=== PATIENT | female | born 1950 | race Caucasian/White ===

== ENCOUNTER 2016-11-20 06:25 | Day surgery (SDC) | payer BC ==
--- NOTE | ~2016-11-20 | OP ---
Record Of Operation [facility] [address] [place]. 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 OPERATION PERFORMED: Right internal jugular Port-A-Cath placement under ultrasound and fluoroscopic guidance. SURGEON: Guillermo Wetzel M.D. ANESTHESIA: General. ESTIMATED BLOOD LOSS: Less than 10 mL. IV FLUIDS: Adequate. DESCRIPTION OF PROCEDURE: After appropriate sedation, the patient was prepped and draped in proper sterile fashion. Ultrasound probe was placed over the right neck. She had a patent and pliable right internal jugular vein. The right internal jugular vein was cannulated using a 14-gauge needle under ultrasound guidance. A guidewire was fed under fluoroscopic guidance just above the right heart. A transverse incision was made over the right chest wall. Subcutaneous tissues were incised down to the pectoralis fascia and a pocket was bluntly dissected. We placed an introducer sheath over the guidewire. A catheter was then fed through the introducer sheath with the tip being just above the right heart. The catheter was then fed through the sheath with the tip being just above the right heart. The catheter was then tunneled subcutaneously to the port pocket and secured to the port. The port was secured to the chest wall using 3-0 Vicryl suture. The port was flushed and aspirated, flushed and aspirated easily. The skin was closed using interrupted 3-0 Vicryl sutures. Steri-Strips and dressings were then placed. The patient was taken to the recovery room in satisfactory condition. DENNISE/DANYEL Guillermo Wetzel M.D. / [id number] CC: Guillermo Janeth Wetzel II, M.D.
[~2016-11-20 06:25] MED LIST: ACET500CAP PO; ARIXTRA7.5 SC; ASA5GR PO; BREO ELLIPTA 21 EACH INH; CALTRA600D PO; DSS PO; ELIQUIS 2.5 MG2.5 MG PO; FOLIC ACID PO; FOLIC PO; FORTAMET500 MG PO; GLUCPH PO; MTX2.5 PO; NORCO1 TAB PO; P5 PO; PCET PO; PLAQ200B PO; PRIN20 PO; SYMBICORT 160/41 INH INH; SYN1 PO; TOPAMAX25 PO; TREXALL5 MG PO; ULTRAM50 PO; ZESTRIL20 MG PO; ZIAC2 PO
[2016-11-20 07:35] LABS: HEMATOCRIT 32.9 % (36.0-48.0); HEMOGLOBIN 10.9 g/dL (12.0-16.0)
[2016-11-20 07:49] LABS: BUN (BLOOD UREA NITROGEN) 17 MG/DL (6-23); CALCIUM, SERUM 8.5 MG/DL (8.5-10.4); CHLORIDE, SERUM 111 MMOL/L (96-112); CO2 (CARBON DIOXIDE) 24 MMOL/L (24-34); CREATININE 0.92 MG/DL (0.55-1.02); GFR AFRICAN AMERICAN 76 ML/MIN (>=60); GFR NON AFRICAN AMERICAN 66 ML/MIN (>=60); GLUCOSE, SERUM 96 MG/DL (60-99); POTASSIUM, SERUM 3.4 MMOL/L (3.5-5.3); SODIUM, SERUM 145 MMOL/L (135-148)
[2017-03-14] MEDS ORDERED: TOPAMAX25 PO (18:13)
[2017-03-14] MEDS ORDERED: SYN1 PO (18:13)
[2017-03-14] MEDS ORDERED: ELIQUIS 2.5 MG2.5 MG PO (18:13)
[2017-03-14] MEDS ORDERED: PLAQ200B PO (18:14)
[2017-03-14] MEDS ORDERED: T PO (18:14)
[2017-03-14] MEDS ORDERED: LEVAQUIN750 MG PO (18:15)
[2017-03-14] MEDS ORDERED: CHEMO (18:15)
[2017-03-14] MEDS ORDERED: BREO ELLIPTA 21 EACH INH (18:15)
[2017-03-14] MEDS ORDERED: ATV.5 PO (18:16)
[2017-03-14] MEDS ORDERED: ZOFRAN8 PO (18:16)
[2017-03-14] MEDS ORDERED: TRAZ50 PO (18:17)
[2017-03-14] MEDS ORDERED: COMP10B PO (18:17)
[2017-03-28] MEDS ORDERED: BACTRIM DS1 TAB PO (17:26)
[2017-03-28] MEDS ORDERED: P20 PO (17:27)
[2017-05-21] MEDS ORDERED: LOVENOX120 SC (12:52)
== END 2016-11-20 15:24 | disposition home or self-care (01) ==
LOC: SDC 06:25
PROVIDERS: Specialist
PROC: 05HM33Z Insertion of Infusion Device into Right Internal Jugular Vein, Percutaneous Approach (ICD-10-PCS; principal; 2016-11-20 07:45)
DX: I87.8 Other specified disorders of veins (principal); C49.9 Malignant neoplasm of connective and soft tissue, unspecified; I10 Essential (primary) hypertension; J45.909 Unspecified asthma, uncomplicated; E11.9 Type 2 diabetes mellitus without complications; E03.9 Hypothyroidism, unspecified; Z90.710 Acquired absence of both cervix and uterus; Z88.0 Allergy status to penicillin; Z88.5 Allergy status to narcotic agent; Z99.81 Dependence on supplemental oxygen; M06.9 Rheumatoid arthritis, unspecified; Z88.1 Allergy status to other antibiotic agents; Z88.7 Allergy status to serum and vaccine; G43.909 Migraine, unspecified, not intractable, without status migrainosus; Z90.49 Acquired absence of other specified parts of digestive tract; Z98.890 Other specified postprocedural states
CPT/HCPCS: 71010; 76000; 77001; 80048; 82962; 85014; 85018; 93005; C1788; J0690; J2250; J2405; J3010

== ENCOUNTER 2017-05-23 06:35 | Day surgery (SDC) | payer MEDICARE, OTHER ==
[~2017-05-23] VITALS: Ht 167.6 cm; Wt 75.3 kg
--- NOTE | ~2017-05-23 | OP ---
Record Of Operation [facility] [address] [place]. [address] NAME: TREVOR PROCTOR : 54 STATUS : REG [facility] PAT#: [id number] AGE: 67 ADM/REG DATE : 05/23/17 MR#: [id number] REPORT SERV DATE: 05/25/17 DICTATED BY: WILDER WILSON DATE: 05/23/17 REPORT STATUS : Draft TRANSCRIBED BY: MODL DATE: 05/23/17 DATE OF PROCEDURE: 05/23/2017 PROCEDURES PERFORMED: Fiberoptic bronchoscopy, diagnostic bronchoscopy with airway inspection. INDICATIONS: For a loculated pneumothorax and for evaluation of suture line. After risks and benefits were explained, informed consent was obtained. PROCEDURE IN DETAIL: The patient received conscious sedation under the care of Anesthesiology and tolerated the procedure well. The bronchoscope was inserted orally and advanced beyond the vocal cords without difficulty. The entire bronchial tree was inspected. Topical anesthesia throughout was with 2% lidocaine. The entire bronchial tree was free of any endobronchial lesions. The left bronchial tree appeared fairly normal. The right appeared very good and the suture line on the right lower lobe was intact. We could appreciate the sutures and it looked very good. IMPRESSION: Intact suture line. No endobronchial lesions. Loculated pneumothorax. JUVENCIO/DANYEL Wilder Wilson M.D. / [id number] CC: Janeth Ruvalcaba II, M.D.
[~2017-05-23 06:35] MED LIST changes: +ATV.5 PO; +BACTRIM DS1 TAB PO; +CHEMO; +COMP10B PO; +LEVAQUIN750 MG PO; +LOVENOX120 SC; +P20 PO; +T PO; +TRAZ50 PO; +ZOFRAN8 PO
[2017-05-23 06:52] LABS: BASOPHILS 0.5 %; BASOPHILS ABSOLUTE 0.03 10/3/uL (0.0-0.16); EOSINOPHILS 3.8 %; EOSINOPHILS ABSOLUTE 0.24 10/3/uL (0.0-0.53); HEMATOCRIT 34.4 % (36.0-48.0); HEMOGLOBIN 11.3 g/dL (12.0-16.0); IMMATURE GRANULOCYTES 0.5 %; IMMATURE GRANULOCYTES ABSOLUTE 0.03 10/3/uL (0.0-0.11); LYMPHOCYTES 24.8 %; LYMPHOCYTES ABSOLUTE 1.58 10/3/uL (0.67-4.30); MANUAL DIFF NO %; MEAN CORPUS HGB CONC 32.8 g/dL (32.0-36.0); MEAN CORPUSCULAR HEMOGLOB 30.8 pg (26.0-34.0); MEAN CORPUSCULAR VOLUME 93.7 fL (80-100); MEAN PLATELET VOLUME 9.2 fL (9.2-13.0); MONOCYTES 13.5 %; MONOCYTES ABSOLUTE 0.86 10/3/uL (0.21-1.20); NEUTROPHILS 56.9 %; NEUTROPHILS ABSOLUTE 3.62 10/3/uL (2.02-8.40); PLATELET COUNT 285 10/3/uL (150-400); RBC DISTRIBUTION WIDTH 15.1 % (12.0-16.0); RED CELL COUNT 3.67 10/6/uL (4.0-5.6); WHITE BLOOD CELLS 6.4 10/3/uL (4.5-10.5)
[2017-05-23 07:07] LABS: BUN (BLOOD UREA NITROGEN) 13 MG/DL (6-23); CALCIUM, SERUM 9.1 MG/DL (8.5-10.4); CHLORIDE, SERUM 108 MMOL/L (96-112); CO2 (CARBON DIOXIDE) 26 MMOL/L (24-34); CREATININE 0.98 MG/DL (0.55-1.02); GFR AFRICAN AMERICAN 70 ML/MIN (>=60); GFR NON AFRICAN AMERICAN 61 ML/MIN (>=60); GLUCOSE, SERUM 136 MG/DL (60-99); POTASSIUM, SERUM 4.2 MMOL/L (3.5-5.3); SODIUM, SERUM 141 MMOL/L (135-148)
== END 2017-05-23 23:59 | disposition home health service (06) ==
LOC: DMU 06:35
PROVIDERS: Anesthesiology; Internal Medicine Pulmonary Disease
PROC: 0BJ08ZZ Inspection of Tracheobronchial Tree, Via Natural or Artificial Opening Endoscopic (ICD-10-PCS; principal; 2017-05-23 08:00)
DX: J93.9 Pneumothorax, unspecified (principal); I26.99 Other pulmonary embolism without acute cor pulmonale; J45.20 Mild intermittent asthma, uncomplicated; J98.4 Other disorders of lung; R09.02 Hypoxemia; Z79.899 Other long term (current) drug therapy; Z91.040 Latex allergy status; Z80.0 Family history of malignant neoplasm of digestive organs; Z88.8 Allergy status to other drugs, medicaments and biological substances; M19.90 Unspecified osteoarthritis, unspecified site; K21.9 Gastro-esophageal reflux disease without esophagitis; I10 Essential (primary) hypertension; E03.9 Hypothyroidism, unspecified; M06.9 Rheumatoid arthritis, unspecified; E11.9 Type 2 diabetes mellitus without complications; G43.909 Migraine, unspecified, not intractable, without status migrainosus; Z98.51 Tubal ligation status; Z90.49 Acquired absence of other specified parts of digestive tract; Z98.890 Other specified postprocedural states
CPT/HCPCS: 80048; 85025